=== PATIENT | female | born 1945 | race Caucasian/White ===

== ENCOUNTER 2016-12-29 12:23 | Day surgery (SDC) | payer BC, MEDICARE ==
[2016-12-29] MEDS ORDERED: ONABOTULINUMTOXINA 100 UNIT IM ONE (14:00)
[2016-12-29] MEDS ORDERED: FENTANYL PF 100MCG/2ML VIAL IV ONE (14:00)
[2016-12-29] MEDS ORDERED: PROPOFOL 10 MG/ML VIAL IV ONE (14:00)
--- NOTE | 2017-01-03 10:40 | Operative Note ---
DATE OF SURGERY: REQUESTING PROVIDER: Selina Scruggs PA-C. POSTOPERATIVE DIAGNOSES: 1. Dilated esophagus with ulceration and distal esophageal stricture consistent with achalasia. 2. Diffuse gastritis. 3. Diffuse duodenitis. OPERATION: ESOPHAGOGASTRODUODENOSCOPY. Surgeon: Zachary Yañez M.D. Indication for Procedure: This is a 71-year-old female with history of intermittent episodes of dysphagia who had prior esophagogastroduodenoscopy with no response, who presented today for repeat endoscopy that showed mild dilation of proximal esophagus with distal narrowing at the level of the GE junction concerned with achalasia. Sedation: Sedation is per Anesthesia. Pulse oximetry was monitored throughout the procedure to maintain O2 saturation of 90% or greater. Supplemental oxygen was administered via nasal cannula. Cardiac and vital signs were monitored throughout the duration of the procedure, and they were stable. The standard procedure of esophagogastroduodenoscopy with possible dilatation, risks and benefits of the procedure, including the risk of bleeding and perforation, among others, were explained to the patient who voiced understanding and agrees to have the procedure done. Physical examination was performed, and the patient was found stable for sedation. PROCEDURE: The patient was placed in the left lateral position and sedation was initiated. A plastic bite block was inserted into the oral cavity. The Olympus GIF-180 gastroscope was then introduced into the oral cavity and advanced to the proximal esophagus without difficulty. The esophageal mucosa was carefully examined upon introduction of the gastroscope. The proximal, mid, and distal esophageal mucosa appeared grossly dilated with large amount of food material within it. Using a [place] retrieval net, the food debris was retrieved perorally with no immediate complications. At the level of the GE junction there was distinct ulceration with stricture but no mass lesions were noted. The gastroscope was then advanced into the stomach with mild resistance. The gastric body and antrum appeared diffusely erythematous but no ulcers were noted. The gastroscope was then advanced to the descending duodenum without difficulty. The duodenal bulb and descending duodenal mucosa appeared diffusely erythematous with erosions but no ulcerations were noted. The gastroscope was then withdrawn into the stomach and retroflexion was performed. There were no other lesions. The gastroscope was straightened and withdrawn into the esophagus. Careful evaluation revealed that this is most likely concerned with achalasia given the dilated proximal esophagus. 100 International units of Botox were then diluted with 5 mL of saline and 1 mL was injected into each quadrant of the distal esophagus with no immediate complications. The gastroscope was then withdrawn and the procedures were terminated. The patient tolerated the procedure well without any complications. She remained with stable vital signs and was transferred to the Recovery Room. PLAN AND RECOMMENDATIONS: 1. She is to continue on intensive PPI therapy including Protonix 40 mg twice daily. 2. She will have a repeat esophagogastroduodenoscopy in about 4 to 6 weeks. 3. I will obtain a barium swallow prior to the next endoscopy. As always, thank you for allowing me to participate in the care of your patient. Zachary Yañez MD CC: JJ Stubbs
== END 2016-12-29 13:20 | disposition home or self-care (01) ==
LOC: HOP 12:23
PROVIDERS: ATTEND Internal Medicine Gastroenterology
DX: K22.0 Achalasia of cardia (principal); K22.10 Ulcer of esophagus without bleeding; K22.2 Esophageal obstruction; I10 Essential (primary) hypertension; M79.7 Fibromyalgia
CPT/HCPCS: 43235; 00740; J3010; J0585